=== PATIENT | female | born 1990 | race Caucasian/White ===

== ENCOUNTER 2019-09-22 11:45 | Emergency (ER) | payer OTHER ==
[~2019-09-22] VITALS: Ht 157.5 cm; Wt 68.0 kg
[~2019-09-22 11:45] MED LIST: KEFLEX500 MG PO
[2019-09-22 12:32] LABS: ABSOLUTE EOSINOPHILS 0.1 thou/uL (0.0-0.7); ABSOLUTE LYMPHOCYTES 1.6 thou/uL (0.8-5.3); ABSOLUTE MONOCYTES 0.4 thou/uL (0.0-1.2); ABSOLUTE NEUTROPHILS 2.6 thou/uL (1.6-8.1); BASOPHILS 0.8 %; EOSINOPHILS 2.9 %; HEMOGLOBIN 15.4 gm/dL (12.0-15.0); LYMPHOCYTES 33.7 %; MCH 31.8 pg (26.0-34.0); MCV 90.9 fL (80.0-100.0); MONOCYTES 8.2 %; MPV 9.1 fl. (7.2-11.1); NUCLEATED RBCS 0 /100WBC; PLATELET COUNT* 285 thou/uL (150-400); POLYS 54.4 %; RBC 4.84 mil/uL (4.20-5.00); RDW-CV 12.9 % (10.5-14.5); WBC 4.9 thou/uL (4.0-11.0)
[2019-09-22 12:37] LABS: CALCIUM 9.1 mg/dL (8.5-10.1); POTASSIUM 3.5 mmol/L (3.5-5.1)
[2019-09-22 12:42] LABS: ALBUMIN 4.7 g/dL (3.4-5.0); TOTAL BILIRUBIN 0.5 mg/dL (<0.1-1.0); TOTAL PROTEIN 8.9 g/dL (6.4-8.2)
[2019-09-22] MEDS ORDERED: BENTYL 20 MG TA20 M1 PO (16:26)
[2019-09-22] MEDS ORDERED: ONDANSETRON HCL4 M2 PO (16:28)
[2019-09-22 16:40] VITALS: BP 109/66
== END 2019-09-22 16:41 | disposition home or self-care (01) ==
LOC: M.ERS 11:45
PROVIDERS: Nurse Practitioner Family
DX: Z32.02 Encounter for pregnancy test, result negative (principal); R10.2 Pelvic and perineal pain